=== PATIENT | male | born 1980 | race Caucasian/White ===

== ENCOUNTER 2021-06-30 01:06 | Emergency (ER) | payer OTHER ==
[2021-06-30] MEDS ORDERED: Albuterol/Ipratropium 3.0-0.5 MG/3 ML Neb Soln NEB ONE (01:23)
--- NOTE | 2021-06-30 01:31 | EDM.PDOC ---
ED HPI GENERAL MEDICAL PROBLEM - General Chief Complaint: Asthma Stated Complaint: ASTHMA ATTACK Time Seen by Provider: 06/30/21 01:10 Source of Information: Reports: Patient, Family History Limitations: Reports: No Limitations - History of Present Illness INITIAL COMMENTS - FREE TEXT/NARRATIVE: 41-year-old male woke with chest burning and shortness of breath, felt like his typical asthma attack which she gets occasionally. Unfortunately he did not bring his inhaler. He was very short of breath and tight, they had 25 miles to get to the emergency room and by the time he got here he was feeling a little bit better but still uncomfortable. No fevers or chills. chest pain Pain Score (Numeric/FACES): 4 - Related Data Allergies Allergy/AdvReac Type Severity Reaction Status Date / Time No Known Allergies Allergy Verified 06/30/21 01:13 Home Meds: Home Meds Albuterol Sulfate [Proair Hfa] 1 - 2 inh INH ASDIRECTED PRN 06/30/21 [History] Past Medical History HEENT History: Reports: Impaired Vision, Other (See Below) Other HEENT History: glasses Respiratory History: Reports: Asthma Musculoskeletal History: Reports: Fracture - Infectious Disease History Infectious Disease History: Reports: Chicken Pox - Past Surgical History Musculoskeletal Surgical History: Reports: Other (See Below) Other Musculoskeletal Surgeries/Procedures:: right hip fx. left hand Social & Family History - Tobacco Use Tobacco Use Status *Q: Never Tobacco User - Recreational Drug Use Recreational Drug Use: No ED ROS GENERAL - Review of Systems Review Of Systems: See Below Constitutional: Denies: Fever, Chills HEENT: Denies: Throat Pain Respiratory: Reports: Shortness of Breath, Wheezing, Cough Cardiovascular: Denies: Chest Pain GI/Abdominal: Denies: Nausea, Vomiting Skin: Reports: No Symptoms Neurological: Denies: Headache ED EXAM, GENERAL - Physical Exam Exam: See Below Exam Limited By: No Limitations General Appearance: Alert, Anxious, Other (Looks mildly uncomfortable but not distressed) Head: Atraumatic Respiratory/Chest: No Respiratory Distress, Wheezing (Diffuse expiratory wheezes are heard, especially when coughing) Extremities: Normal Inspection Neurological: Alert, Oriented Psychiatric: Normal Affect, Normal Mood Skin Exam: Warm, Dry Course - Vital Signs Last Recorded V/S: Last Vital Signs Temp 97.6 F 09/05/21 01:18 Pulse 86 06/30/21 01:18 Resp 18 06/30/21 01:18 BP 143/90 H 06/30/21 01:18 Pulse Ox 95 06/30/21 01:18 - Orders/Labs/Meds Meds: Medications Discontinued Medications Generic Name Dose Route Start Last Admin Trade Name Pako PRN Reason Stop Dose Admin Albuterol/Ipratropium 3 ml 06/30/21 01:23 06/30/21 01:29 Albuterol/Ipratropium 3.0-0.5 Mg/3 Ml Neb Soln NEB 06/30/21 01:24 3 ml ONETIME ONE Administration - Re-Assessments/Exams Free Text/Narrative Re-Assessment/Exam: 06/30/21 01:55 A DuoNeb was ordered, he was reexamined 20 minutes later and felt much better, wheezing was gone. He was discharged with an albuterol inhaler to use a couple of puffs every few hours if needed. Return if worsening. Departure - Departure Time of Disposition: 02:18 Disposition: Home, Self-Care 01 Clinical Impression: Acute asthma flare Qualifiers: Asthma severity: moderate Asthma persistence: unspecified Qualified Code(s): J45.901 - Unspecified asthma with (acute) exacerbation - Discharge Information Instructions: Asthma, Adult Referrals: PCP,None [Primary Care Provider] - Forms: ED Department Discharge Care Plan Goals: Use your inhaler as needed for the next couple of days and return anytime if worsening despite treatment. Consider rechecking when you get home if you are not improving satisfactorily. Sepsis Event Note (ED) - Evaluation Sepsis Screening Result: No Definite Risk - Focused Exam Vital Signs: Vital Signs Temp Pulse Resp BP Pulse Ox 06/30/21 01:18 97.6 F 86 18 143/90 H 95 06/30/21 01:13 97.6 F 86 18 143/90 H 95
== END 2021-06-30 02:18 | disposition home or self-care (01) ==
LOC: JP.ED 01:06
DX: J45.901 Unspecified asthma with (acute) exacerbation (principal)
CPT/HCPCS: 94640; 99284-25; J7620-GY